=== PATIENT | male | born 1990 | race Caucasian/White ===

== ENCOUNTER 2018-08-18 08:28 | Outpatient (CLI) | payer MEDICARE, MEDICAID ==
--- NOTE | 2018-08-18 10:06 | XRAY Report ---
Reason: COUGH X 3 MONTHS,ROS Procedure Date: 08/18/2018 Accession Number: [id number] / [id number] Procedure: XR - Chest 2 View X-Ray CPT Code: 20628 FULL RESULT: EXAM: CHEST RADIOGRAPHY 2 VIEWS EXAM DATE: 08/18/2018. CLINICAL HISTORY: Cough for 3 months. COMPARISON: None. TECHNIQUE: PA and lateral views. FINDINGS: Lungs/Pleura: Normal vasculature. The lungs are clear. No pleural fluid or pneumothorax. Mediastinum: Normal cardiac and mediastinal contours. Bones: Normal. IMPRESSION: Normal 2-view chest radiography. RAD[facility]
== END 2018-08-18 08:29 | disposition home or self-care (01) ==
LOC: DI 08:28
PROVIDERS: ATTEND Nurse Practitioner Family
DX: R05 Cough (principal)
CPT/HCPCS: 71046; 94010

== ENCOUNTER 2022-11-21 13:58 | Emergency (ER) | payer MEDICARE, MEDICAID ==
--- NOTE | 2022-11-21 16:57 | ED Physician Documentation ---
PD HPI SKIN - Stated complaint Stated Complaint: RT LT FOOT PX - Chief complaint Chief Complaint: Ext Problem - History obtained from History obtained from: Patient - History of Present Illness Timing - onset: How many weeks ago (several) Timing - duration: Weeks Timing - details: Gradual onset, Still present Location: RLE, LLE (both heels) Quality / character: Painful, Crusted, Other (has had area of itchy and then tender skin on both heels. SKin has thickened and is scaly. Hard areas have cracked open and are very painful the past few days. No drainage nor redness.). No: Draining Improved by: Other (eucerin type skin lotion) Associated symptoms: No: Fever Contributing factors: No: Exposed to Poison trae/oak, Recent illness Similar symptoms before: Has not had sx before Recently seen: Clinic (seen by PCP and referred for Podiatry without Rx nor scrapings.) Review of Systems Constitutional: denies: Fever Cardiac: denies: Chest pain / pressure, Palpitations Respiratory: denies: Dyspnea, Cough GI: denies: Abdominal Pain, Vomiting PD PAST MEDICAL HISTORY - Past Medical History Cardiovascular: None Respiratory: None Neuro: None - Past Surgical History Past Surgical History: No - Present Medications Home Medications: Ambulatory Orders Medication Instructions Recorded Confirmed Albuterol Sulf [Ventolin Hfa 1 - 2 puffs INH Q4HR PRN #1 inhaler 08/27/19 Inhaler] Benzonatate [Tessalon Perle] 100 - 200 mg PO TID PRN #30 capsule 08/27/19 Dextroamphetamine Sulfate 20 mg PO DAILY 08/27/19 08/27/19 [Dexedrine] Fluticasone Furoate [Arnuity 100 mcg IH DAILY 08/27/19 08/27/19 Ellipta] Clotrimazole/Betamethasone Crm 1 applic TOP BID #45 gm 11/21/22 [Lotrisone Cream] - Allergies Allergies/Adverse Reactions: Allergies Allergy/AdvReac Type Severity Reaction Status Date / Time No Known Drug Allergies Allergy Verified 11/21/22 14:48 - Social History Does the pt smoke?: No Smoking Status: Never smoker Does the pt have substance abuse?: No PD ED PE NORMAL - Vitals Vital signs reviewed: Yes - General General: Alert and oriented X 3, No acute distress, Well developed/nourished - Derm Derm: Normal color, Warm and dry, Other (heels with rash/scaling. No other areas of it. Mild redness/scaling between toes. ) - Extremities Extremities: Other (both heels with similar redness at edges to sides and back of heel, with predominant hyperkeratosis of heels. Tender and hard thick skin with cracking of thicker scaly skin area. No drainage. The scaling does come off in flakes with edge of scalpel. ) - Neuro Neuro: Alert and oriented X 3, No motor deficit, No sensory deficit, Normal speech Results - Vitals Vitals: Oxygen O2 Source Room air PD Medical Decision Making - ED course Complexity details: considered differential (symmetric redness with mainly central scaling that is thick. No purulence. Seems likely fungal skin with hyperkeratosis that is now cracking. Advised pt/family to scour/abrade/scrape the thicker areas to get softer and use antifungal/steeroid cream to area bid. Can follow with Podiatry as planned.), d/w patient, d/w family Departure - Departure Disposition: 01 Home, Self Care Clinical Impression: Tinea pedis Qualifiers: Laterality: bilateral Qualified Code(s): B35.3 - Tinea pedis Condition: Stable Record reviewed to determine appropriate education?: Yes Instructions: ED Fungal Infec Athlete Foot Follow-Up: Jonathan Hopkins MD [Primary Care Provider] - Prescriptions: Clotrimazole/Betamethasone Crm [Lotrisone Cream] 1 applic TOP BID #45 gm Comments: This looks to be patches of thickened skin in with the surrounding redness related to's can yeast infection (athlete's foot). To help with the tenderness of the areas, getting some of the thick and hard skin removed will help quite a bit. I would suggest sending down some of the thicker area either with a gentle use of sandpaper or they do have little battery-operated feet Jones. On the thicker spots you can use the scalpel obliquely to shave off some of the thicker spots. This part will more easily be done with the skin dry initially. Then you would want to soak the feet in water to soften up the skin and apply the antifungal/steroid cream to the area lightly on both sides. Follow that with a skin protectant and softener such as lanolin or Son butter. I would anticipate slow improvement of this over the next week or so. You can follow-up with the aeronautical research engineer if this is not resolving well. Otherwise I would anticipate this healing with the above treatments slowly. I sent your prescription to [email or web address] in [place]. Discharge Date/Time: 11/21/22 17:11
[2022-11-21 17:12] VITALS: BP 118/75
== END 2022-11-21 17:11 | disposition home or self-care (01) ==
LOC: ED 13:58
DX: B35.3 Tinea pedis (principal)
CPT/HCPCS: 99282

== ENCOUNTER 2024-07-29 20:58 | Emergency (ER) | payer MEDICARE, MEDICAID ==
--- NOTE | 2024-07-29 21:08 | ED Physician Documentation ---
History of Present Illness - Stated complaint Stated Complaint: ALLERGIC REACTION - Chief complaint Chief Complaint: Allergic Rx - Additonal information Additional information: 34-year-old male presents with concern for allergic reaction. Yesterday, he ate guava for potentially the first time. He noticed hives all over his body after this yesterday, and today around 6:30 PM, he developed facial swelling on his left side along with sensation of tightness in his lungs. No confusion, nausea or vomiting or diarrhea, pain, shortness of breath, lightheadedness or syncope. No prior reactions like this. No other new exposures or new medications. Mother at bedside denies family history of anaphylaxis. Patient history of autism, migraines, asthma. No F/C. No other new concerns. ROS Constitutional: no fever, no chills Eyes: no visual disturbance, no discharge Ears, Nose, Mouth, Throat: no rhinorrhea, no sore throat Cardiovascular: no chest pain, no palpitations Respiratory: no cough, no shortness of breath Gastrointestinal: no abdominal pain, no vomiting, no diarrhea Genitourinary: no dysuria, no hematuria Musculoskeletal: no back pain, no neck stiffness Skin: no rash, no wound Neurological: no focal weakness, no focal numbness PD PAST MEDICAL HISTORY - Past Medical History Past Medical History: Yes Cardiovascular: None Respiratory: None Neuro: Migraines - Past Surgical History Past Surgical History: No - Present Medications Home Medications: Ambulatory Orders Medication Instructions Recorded Confirmed Albuterol Sulf [Ventolin Hfa 1 - 2 puffs INH Q4HR PRN #1 inhaler 08/27/19 Inhaler] Benzonatate [Tessalon Perle] 100 - 200 mg PO TID PRN #30 capsule 08/27/19 Dextroamphetamine Sulfate 20 mg PO DAILY 08/27/19 08/27/19 [Dexedrine] Fluticasone Furoate [Arnuity 100 mcg IH DAILY 08/27/19 08/27/19 Ellipta] Clotrimazole/Betamethasone Crm 1 applic TOP BID #45 gm 11/21/22 [Lotrisone Cream] EPINEPHrine [Epinephrine] 0.3 mg IJ ONCE PRN #2 each 07/29/24 - Allergies Allergies/Adverse Reactions: Allergies Allergy/AdvReac Type Severity Reaction Status Date / Time guava Allergy Edema Verified 07/29/24 22:08 - Social History Does the pt smoke?: No Smoking Status: Never smoker Does the pt drink ETOH?: No Does the pt have substance abuse?: No - Immunizations Immunizations are current?: Yes - POLST Patient has POLST: No PD ED PE NORMAL - Free text exam Free text exam: Const: no acute distress, non toxic appearing; calm, conversant, pleasant Head: L sided facial swelling most notable to left upper lip, though extending throughout L face and forehead Eyes: PERRLA, EOMI ENT: uvula midline. No tonsillar swelling or exudate. No edema or swelling of o ral cavity including tongue, under tongue, cheeks, submental, sublingual areas. No pain on palpation of throat. No pus or exudate. No drooling. No trismus. No stridor. Neck: supple, non-tender Resp: no respiratory distress, clear to auscultation bilaterally Card: regular rate and rhythm, no murmurs Abd: non tender diffusely, no rigidity or rebound or guarding Back: no T or L spine tenderness, no CVA tenderness bilaterally Extrem: no deformities, no swelling bilateral lower extremities Neuro: ANOx4, manager of sustainability 2-12 intact, grossly intact sensation and strength all extremities Skin: scattered mild hives to BUE, warm and dry Results - Vitals Vitals: Vital Signs - 24 hr 07/29/24 07/29/24 07/29/24 21:02 21:34 22:04 Temperature 36.5 C Heart Rate 91 78 92 Respiratory 16 14 16 Rate Blood Pressure 127/81 H 120/86 H 126/94 H O2 Saturation 99 80 L 96 07/29/24 07/29/24 07/29/24 22:30 23:00 23:44 Temperature Heart Rate 91 88 91 Respiratory 17 15 14 Rate Blood Pressure 133/93 H 141/103 H 125/85 H O2 Saturation 96 96 96 Oxygen O2 Source Room air PD Medical Decision Making - ED course ED course: This patients presentation is highly consistent with allergic reaction and potential anaphylaxis. Patient is currently protecting his airway without rapidly evolving symptoms, however, swelling does involve face and he does have subjective sensation of throat tightness. I will treat with EpiPen, famotidine, Benadryl, dexamethasone and closely monitor. After monitoring, patient did not require additional epinephrine and appears well after multiple hours, with excellent symptom improvement. He had mild headache on my clarification after medications, not sudden or severe, with no neurovascular deficits. He appears comfortable, and was resting prior to discharge. He and mother fully understand and are able to follow return precautions. They are requesting to discharge. Patient and family fully understand avoidance of triggers, follow-up with primary care for estimator printing referral, and caring EpiPen at all times. Patient will not drive. I am prescribing 2 EpiPens, to have one on hand at all times. Patient ambulatory and tolerating PO. Repeat exams and vital signs reassuring. Blood pressure is elevated but suitable for outpatient follow up, with no evidence of hypertensive emergency here clinically. Patient questions answered and plan reviewed. Strong return precautions given. Patient discharged. Departure - Departure Disposition: Home, Self Care Clinical Impression: Anaphylaxis Instructions: ED Allergic Reaction General Other Prescriptions: EPINEPHrine [Epinephrine] 0.3 mg IJ ONCE PRN #2 each PRN Reason: Allergy Symptoms Comments: It was a pleasure taking care of you today. It is important to fully read and understand the below. Please ask us if you have any questions. We think the most likely cause of your symptoms was anaphylaxis. You received epinephrine, long-acting steroids, Benadryl, famotidine. Do not drive today. Please carry an EpiPen at all times; I am prescribing you 2. As discussed, please avoid all potential triggers and talk to your primary doctor tomorrow regarding estimator printing referral. No tests or assessments are perfect, and your condition could post exchange manager time. If your symptoms change or worsen, it is very important you immediately seek medical care. If you have any new or worsening pain, voice changes, difficulty opening and closing your mouth, drooling, shortness of breath, fever, worsening rash, worsening swelling, vomiting, confusion, numbness, weakness, or anything else that concerns you, please immediately seek medical care. If you have been prescribed any medications: please read the drug package inserts on how to properly use the medication and any potential side effects. If you had labs (blood tests) or imaging (CT scan or x-rays) done during your visit: please follow up on the results of these with your primary care doctor, as discussed. In addition, please know the results we received today may be preliminary. Our usual practice is to follow up on tests within a few days of a patient's discharge from the Emergency Department and notify you of any changes. These may lead to changes to your treatment plan. However, the best way to obtain and interpret these test results is through your Primary Care Provider. If you need to update your contact information, please stop by the front office medical assistant and alert the Registration personnel before you leave the Emergency Department. Thank you for the opportunity to participate in your healthcare. We are always here and happy to see you in the future. Forms: PCP List
[2024-07-29] MEDS: diphenhydrAMINE INJ 50 MG/ML VIAL IVP STA (21:23)
[2024-07-29] MEDS: FAMOTIDINE 20 MG/2 ML VIAL IVP STA (21:23)
[2024-07-29] MEDS: DEXAMETHASONE 10 MG/ML VIAL IVP STA (21:24)
[2024-07-29] MEDS: EPINEPHrine 1 MG/ML AMP IM STA (21:24)
[2024-07-29 22:23] VITALS: O2SAT 96
[2024-07-29 23:46] VITALS: BP 125/85
== END 2024-07-29 23:49 | disposition home or self-care (01) ==
LOC: ED 20:58
DX: T78.2XXA Anaphylactic shock, unspecified, initial encounter (principal); X58.XXXA Exposure to other specified factors, initial encounter
CPT/HCPCS: 96372; 96374; 96375; 99283; J1200

== ENCOUNTER 2024-08-26 07:25 | Outpatient (CLI) | payer MEDICARE, MEDICAID ==
[2024-08-26 14:47] LABS: BASOPHILS % (AUTO) 0.5 %; EOSINOPHILS # (AUTO) 0.4 10^3/uL (0.0-0.7); EOSINOPHILS % (AUTO) 5.4 %; HCT - HEMATOCRIT 44.7 % (42.0-52.0); HGB - HEMOGLOBIN 15.2 g/dL (14.0-18.0); LYMPHOCYTES # (AUTO) 1.7 10^3/uL (1.5-3.5); MEAN CORPUSCULAR HEMOGLOBIN 29.4 pg (27.0-31.0); MEAN CORPUSCULAR VOLUME 86.5 fL (80.0-94.0); MEAN PLATELET VOLUME 9.9 fL (7.4-11.4); MONOCYTES # (AUTO) 0.6 10^3/uL (0.0-1.0); MONOCYTES % (AUTO) 9.8 %; NEUTROPHILS # (AUTO) 3.7 10^3/uL (1.5-6.6); NEUTROPHILS % (AUTO) 56.8 %; PLT - PLATELET COUNT 291 10^3/uL (130-450); RED BLOOD COUNT 5.17 10^6/uL (4.70-6.10); RED CELL DISTRIBUTION WIDTH 13.1 % (12.0-15.0); WHITE BLOOD COUNT 6.5 x10^3/uL (4.8-10.8)
[2024-08-26 15:47] LABS: THYROID STIMULATING HORMONE 4.96 uIU/mL (0.34-5.60)
[2024-08-26 15:54] LABS: ALBUMIN 4.3 g/dL (3.2-5.5); BILIRUBIN,TOTAL 0.6 mg/dL (0.2-1.0); CALCIUM 9.2 mg/dL (8.5-10.3); CREATININE 0.8 mg/dL (0.6-1.3); POTASSIUM 3.8 mmol/L (3.5-4.5); TOTAL PROTEIN 6.4 g/dL (6.4-8.9)
== END 2024-08-26 07:26 | disposition home or self-care (01) ==
LOC: LAB.S 07:25
PROVIDERS: ATTEND Registered Nurse
DX: Z13.29 Encounter for screening for other suspected endocrine disorder (principal); Z13.228 Encounter for screening for other metabolic disorders; Z13.0 Encounter for screening for diseases of the blood and blood-forming organs and certain disorders involving the immune mechanism
CPT/HCPCS: 36415; 80053; 84436; 84443; 84480; 85025